=== PATIENT | male | born 1935 | race Caucasian/White ===

== ENCOUNTER 2019-01-28 19:38 | Emergency (ER) | payer MEDICARE, OTHER ==
[~2019-01-28] VITALS: Ht 182.9 cm; Wt 117.9 kg
[~2019-01-28 19:38] MED LIST: ENALAPRIL; HCTZ; HYDROCHLOROTHIA25 MG PO; LOSARTAN POTAS100 MG PO; METOPROLOL SUCC25 MG PO; PANTOPRAZOLE SO40 MG PO
--- OUTSIDE RECORDS SUMMARY | 2019-01-28 19:41 | XMS REPORT | Summary of Care ---
Author Author WILLY Walker, HERNANDO Price Unknown Address Unknown Phone Unavailable Care Team Providers Care Commercial Driver Name Role Phone Martha Nicole R.N. Unavailable Unavailable NICOLE Walker, SATHYA Unavailable Unavailable FRED Walker, ALISHA Unavailable Unavailable WILLY Walker, HERNANDO Unavailable Unavailable KELLEY [place], DOTTIE Y Unavailable Unavailable KELLEY Walker, DOTTIE Unavailable Unavailable FRED [place], ALISHA H Unavailable Unavailable WILLY OVERTON, HERNANDO Unavailable Unavailable GIRISH CHRIS [place], ENRIKEJASMEET Unavailable Unavailable NICOLE [place], SATHYA Ferrell Unavailable Unavailable BECKY [place], DWAYNE COELHO Unavailable Unavailable Unavailable Unavailable Functional Status Name Dates Details Functional status health issues are not documented Status: Name Dates Details Cognitive status health issues are not documented Status: Problems Name Dates Details 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, 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 Neuralgia (729.2, M79.2) Status: Active Polyuria (788.42, R35.8) Status: Active Gout (274.9, M10.9) Status: Active Fracture of left inferior pubic ramus with delayed healing (V54.19, S32.592G) Status: Active Left sciatic nerve pain (724.3, M54.32) Status: Active 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, 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 Advance care planning (V65.49, Z71.89) Status: Active Pre-op exam (V72.84, Z01.818) Status: Active Hyperlipidemia (272.4, E78.5) Status: Active Aortic dilatation (447.70, I77.819) Status: Active Skin lesions (709.9, L98.9) Status: Active Foot pain (729.5, M79.673) Status: Active Limb pain (729.5, M79.609) Status: Active Fatigue (780.79, R53.83) Status: Active Weakness generalized (780.79, R53.1) Status: Active Bradycardia, unspecified (427.89, R00.1) Status: Active Abnormal CBC (790.6, R79.89) Status: Active Insomnia (780.52, G47.00) Status: Active PVC (premature ventricular contraction) (427.69, I49.3) Status: Active Hip pain, acute, right (719.45, M25.551) Status: Active Anxiety (300.00, F41.9) Status: Active Cloudy urine (791.9, R82.90) Status: Active Hernia, inguinal (550.90, K40.90) Status: Active Scrotum swelling (608.86, N50.89) Status: Active Neuropathy, peripheral (356.9, G62.9) Status: Active Severe right groin pain (789.09, R10.30) Status: Active Rash (782.1, R21) Status: Active 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, 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, 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 (701.9, L91.8) Status: Active 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, 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 * Start : 13-Aug-2018 Active Aspirin Low Dose 81 MG TABS 1 TABLET BY MOUTH DAILY * Refills: 0 Active Metoprolol Tartrate 25 MG Oral Tablet take 1/2 tablet twice daily * Quantity: 30 Refills: 2 HERNANDO AGUILERA M.D. * Start : 13-Oct-2018 Active Flecainide Acetate 50 MG Oral Tablet TAKE 1 TABLET BY MOUTH TWICE DAILY * Quantity: 180 Refills: 2 HERNANDO AGUILERA M.D. * Start : 10-Jun-2017 Active Diclofenac Sodium 1 % Transdermal Gel APPLY TO LOWER EXTREMITIES, 4 GM OF GEL TO AFFECTED AREA 4 TIMES DAILY. DO NOT APPLY MORE THAN 16 GM DAILY TO ANY ONE AFFECTED JOINT. * Quantity: 5 Refills: 3 ALISHA IBARRA M.D. * Start : 01-Oct-2017 Active 100 GM Tube HYDROcodone-Acetaminophen 5-325 MG Oral Tablet TAKE 1 TABLET BY MOUTH DAILY NEEDED * Quantity: 180 Refills: 0 Active Gabapentin 100 MG Oral Capsule TAKE 1 CAPSULE AT BEDTIME- PRESCRIBED BY [facility] * Refills: 0 Active Mucinex DM 30-600 MG Oral Tablet Extended Release 12 Hour TAKE 1 TO 2 TABLETS EVERY 12 HOURS NEEDED. * Quantity: 60 Refills: 0 SATHYA RIVERA M.D. * Start : 31-Dec-2018 End : 15-Jan-2019 Active Ventolin HFA 108 (90 Base) MCG/ACT Inhalation Aerosol Solution INHALE 2 PUFFS 3 TIMES DAILY NEEDED. * Quantity: 1 Refills: 2 SATHYA RIVERA M.D. * Start : 02-Jan-2019 Active 8 GM Inhaler Levalbuterol HCl - 1.25 MG/3ML Inhalation Nebulization Solution 1 treatment in office now * Refills: 0 SATHYA RIVERA M.D. * Start : 02-Jan-2019 Admin Requested Amoxicillin-Pot Clavulanate 875-125 MG Oral Tablet TAKE 1 TABLET EVERY 12 HOURS WITH MEALS UNTIL GONE. * Quantity: 20 Refills: 0 SATHYA RIVERA M.D. * Start : 02-Jan-2019 Active Fenofibrate 145 MG Oral Tablet TAKE 1 TABLET DAILY. * Quantity: 30 Refills: 5 HERNANDO AGUILERA M.D. 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 Date: 07-Jan-2019 [QH] LIPID PANEL WITH REFLEX TO DIRECT LDL Date: 07-Jan-2019 [N] 2D Echo complete, with Doppler 80375 Date: 07-Jan-2019 History of Knee Surgery Completed History of Cataract Surgery Completed History of Inguinal hernia repair Completed Immunization Name Dates Details Immunizations not documented Family History Name Dates Details Family history of Aneurysm Of Abdominal Aorta Comments: Family History Status: Active Family history of Hairy-cell Leukemia - Splenic Comments: Family History Status: Active Social History Name Dates Details - Status: Name Dates Details Former smoker Vital Signs Date Test Result Details [id number] BP Systolic 127 mm[Hg] Status: Comments: Location: RUE; Position: Sitting BP Diastolic 83 mm[Hg] Status: Comments: Location: RUE; Position: Sitting Height 72 in Status: Weight 210 lb Status: Body Mass Index Calculated 28.48 kg/m2 Status: Body Surface Area Calculated 2.18 m2 Status: Heart Rate 65 /min Status: :23 O2 SAT 97 % Status: :15 BP Systolic 138 mm[Hg] Status: Comments: Location: LUE; Position: Sitting BP Diastolic 79 mm[Hg] Status: Comments: Location: LUE; Position: Sitting Height 72 in Status: Weight 215 lb Status: Body Mass Index Calculated 29.16 kg/m2 Status: Body Surface Area Calculated 2.2 m2 Status: Heart Rate 62 /min Status: Comments: Location: L Radial; Temperature 97.8 f Status: Comments: Method: Oral :54 Physical Findings 2 Status: Comments: PHQ-9 Adult Depression Screening :51 BP Systolic 116 mm[Hg] Status: Comments: Location: LUE; Position: Sitting BP Diastolic 77 mm[Hg] Status: Comments: Location: [facility] [place]; Position: Sitting Height 72 in Status: Weight 215.9 lb Status: Body Mass Index Calculated 29.28 kg/m2 Status: Body Surface Area Calculated 2.2 m2 Status: Heart Rate 65 /min Status: O2 SAT 97 % Status: Comments: Source: Temperature 98 f Status: Comments: Method: Oral Physical Findings 0 Status: Comments: Alcohol Screen - How many times in the past yr have you had 5 (for M) or 4 (for F) or 4 (for all > 65yrs) or more drinks in a day? Respiration Rate 16 /min Status: Results Date Description Value Details [id number] [O] Flu Test (in Office ) Flu A NEGATIVE (Normal) Flu B NEGATIVE (Normal) Plan of Care Name Dates Details Planned Observations Planned Goals not documented Planned Encounters Appointment; JHONY ECHO On: 05-Jul-2019 13:00 Appointment; JHONY HOLTER On: 05-Jul-2019 14:00 Appointment; HERNANDO AGUILERA M.D. On: 22-Jul-2019 11:00 Interventions Provided Medication Changes* Fenofibrate 145 MG Oral Tablet - Renew Instructions Name Dates Details Instructions not documented Encounters Appointment; ALISHA IBARRA M.D. Encounter Diagnosis: Problem not documented On: 06-Feb-2017 10:30 Appointment; DOTTIE BENSON M.D. Encounter Diagnosis: Problem not documented On: 07-Feb-2017 11:00 Appointment; HERNANDO AGUILERA M.D. Encounter Diagnosis: Problem not documented On: 10-Feb-2017 15:15 Appointment; JHONY NUCLEAR Encounter Diagnosis: Problem not documented On: 17-Feb-2017 11:30 Appointment; JHONY ECHO Encounter Diagnosis: Problem not documented On: 18-Feb-2017 8:00 Appointment; HERNANDO AGUILERA M.D. Encounter Diagnosis: Problem not documented On: 20-Feb-2017 9:30 Appointment; ALISHA IBARRA M.D. Encounter Diagnosis: Problem not documented On: 27-Feb-2017 10:30 Appointment; OLEG MUÑOZ NP Encounter Diagnosis: Problem not documented On: 05-Mar-2017 11:30 Appointment; ALISHA IBARRA M.D. Encounter Diagnosis: Problem not documented On: 09-Apr-2017 9:45 Appointment; ALISHA IBARRA M.D. Encounter Diagnosis: Problem not documented On: 15-Apr-2017 9:00 Appointment; ALISHA IBARRA M.D. Encounter Diagnosis: Problem not documented On: 07-May-2017 11:15 Appointment; ALISHA IBARRA M.D. Encounter Diagnosis: Problem not documented On: 21-May-2017 11:45 Appointment; ALISHA IBARRA M.D. Encounter Diagnosis: Problem not documented On: 23-May-2017 10:00 Appointment; BECCA VÁSQUEZ NP Encounter Diagnosis: Problem not documented On: 23-May-2017 14:15 Appointment; HERNANDO AGUILERA M.D. Encounter Diagnosis: Problem not documented On: 26-May-2017 13:30 Appointment; JESSI BOOKER Encounter Diagnosis: Problem not documented On: 26-May-2017 15:00 Appointment; HERNANDO AGUILERA M.D. Encounter Diagnosis: Problem not documented On: 10-Jun-2017 14:00 Appointment; AMANDA STOUT D.O. Encounter Diagnosis: Problem not documented On: 11-Jun-2017 13:30 Appointment; ALISHA IBARRA M.D. Encounter Diagnosis: Problem not documented On: 04-Jul-2017 10:00 Appointment; HERNANDO AGUILERA M.D. Encounter Diagnosis: Problem not documented On: 10-Jul-2017 11:00 Appointment; AMANDA STOUT D.O. Encounter Diagnosis: Problem not documented On: 24-Jul-2017 12:00 Appointment; ALISHA IBARRA M.D. Encounter Diagnosis: Problem not documented On: 30-Jul-2017 15:15 Appointment; TISH MONROE D.O. Encounter Diagnosis: Problem not documented On: 13-Aug-2017 14:00 Appointment; GRACE VU M.D. Encounter Diagnosis: Problem not documented On: 15-Aug-2017 13:00 Appointment; DOTTIE BENSON M.D. Encounter Diagnosis: Problem not documented On: 28-Aug-2017 14:15 Appointment; ALISHA IBARRA M.D. Encounter Diagnosis: Problem not documented On: 01-Oct-2017 9:30 Appointment; ALISHA IBARRA M.D. Encounter Diagnosis: Problem not documented On: 01-Oct-2017 14:00 Appointment; ALISHA IBARRA M.D. Encounter Diagnosis: Problem not documented On: 13-Nov-2017 10:30 Appointment; ALISHA IBARRA M.D. Encounter Diagnosis: Problem not documented On: 26-Nov-2017 13:00 Appointment; ALISHA IBARRA M.D. Encounter Diagnosis: Problem not documented On: 31-Dec-2017 14:00 Appointment; HERNANDO AGUILERA M.D. Encounter Diagnosis: Problem not documented On: 13-Jan-2018 14:00 Appointment; LIAT ARANDA P.A. Encounter Diagnosis: Problem not documented On: 21-Jan-2018 8:15 Appointment; ALISHA IBARRA M.D. Encounter Diagnosis: Problem not documented On: 11-Feb-2018 11:15 Appointment; ALISHA IBARRA M.D. Encounter Diagnosis: Problem not documented On: 18-Feb-2018 11:15 Appointment; ALISHA IBARRA M.D. Encounter Diagnosis: Problem not documented On: 20-Feb-2018 13:30 Appointment; ALISHA IBARRA M.D. Encounter Diagnosis: Problem not documented On: 13-May-2018 11:15 Appointment; ALISHA IBARRA M.D. Encounter Diagnosis: Problem not documented On: 17-Jun-2018 11:00 Appointment; ALISHA IBARRA M.D. Encounter Diagnosis: Problem not documented On: 01-Jul-2018 13:15 Appointment; HERNANDO AGUILERA M.D. Encounter Diagnosis: Problem not documented On: 09-Jul-2018 11:20 Appointment; HERNANDO AGUILERA M.D. Encounter Diagnosis: Problem not documented On: 16-Jul-2018 11:20 Appointment; SATHYA RIVERA M.D. Encounter Diagnosis: Problem not documented On: 31-Dec-2018 15:15 Appointment; TITO MACKAY NP Encounter Diagnosis: Problem not documented On: 02-Jan-2019 11:00 Appointment; HERNANDO AGUILERA M.D. Encounter Diagnosis: Problem not documented On: 07-Jan-2019 11:20
[2019-01-28] MEDS ORDERED: ALBUTEROL/IPRATROPIUM 3 ML NEB NEB ONE (20:15)
[2019-01-28] MEDS ORDERED: IBUPROFEN 600 MG TAB PO ONE (20:33)
--- NOTE | 2019-01-28 20:37 | Diagnostic Imaging Report ---
EXAMINATION: CXR 2 VIEW - HOPD INDICATION: Chest congestion. Cough. Wheezing x3-4 weeks. COMPARISON: None FINDINGS: TUBES and LINES: None. LUNGS: Lungs are well inflated. There are bibasilar atelectasis. There is no evidence of pneumonia or pulmonary edema. PLEURA: No pleural effusion or pneumothorax. HEART AND MEDIASTINUM: The cardiomediastinal silhouette is unremarkable. Aorta is mildly tortuous. BONES AND SOFT TISSUES: There are degenerative changes in the thoracic spine. Soft tissues are unremarkable. UPPER ABDOMEN: No free air under the diaphragm. IMPRESSION: No acute thoracic abnormality. Signed by: Dr. Teofilo Ramos M.D. on 01/28/2019 8:34 PM
[2019-01-28 20:50] VITALS: BP 158/95
== END 2019-01-28 21:11 | disposition home or self-care (01) ==
LOC: FSED 19:38
DX: R05 Cough (principal); J20.9 Acute bronchitis, unspecified
CPT/HCPCS: 71046; 99283

== ENCOUNTER 2024-12-29 01:38 | Emergency (ER) | payer MEDICARE ==
[~2024-12-29] VITALS: Ht 182.9 cm; Wt 88.0 kg
[2024-12-29 01:43] VITALS: TEMP 98.4
[2024-12-29] MEDS ORDERED: BELLADONNA ALK/PHENOBARBITAL 5 ML UDC ONE (02:15)
[2024-12-29] MEDS: LIDOCAINE VISC 2% SOLN 15 ML UDC PO ONE (02:16)
[2024-12-29] MEDS: FAMOTIDINE 20 MG/2 ML VIAL IV STA (02:30)
[2024-12-29] MEDS: MAGNESIUM/ALUMINUM/SIMETHICONE 30 ML UDC PO ONE (02:30)
[2024-12-29] MEDS: BELLADONNA ALK/PHENOBARBITAL 5 ML UDC PO ONE ×2 (02:31)
[2024-12-29] MEDS ORDERED: IOPAMIDOL 370 MG/ML 100 ML INFUS..BTL INJ ONE (02:54)
[2024-12-29] MEDS ORDERED: KETOROLAC TROMETHAMINE 30 MG/ML VIAL ONE (04:08)
[2024-12-29] MEDS: KETOROLAC TROMETHAMINE 30 MG/ML VIAL IV STA (04:15)
[2024-12-29 04:45] VITALS: PULSE 65; RESP 18
[2024-12-29] MEDS: Morphine 2mg Syringe 2 MG/ML SYR IV ONE (04:53)
[2024-12-29 06:38] VITALS: BP 172/78; PULSE 65; RESP 18; TEMP 98.4; O2SAT 99
[2024-12-29] MEDS: Morphine 2mg Syringe 2 MG/ML SYR IV PRN (06:54)
[2024-12-29] MEDS: SODIUM CHLORIDE 0.9% 1000ML 1,000 ML IV SCH (06:54)
== END 2024-12-29 06:50 | disposition short-term general hospital (02) ==
LOC: FSED 02:02
DX: R10.11 Right upper quadrant pain (principal); K81.9 Cholecystitis, unspecified; R14.2 Eructation; I44.0 Atrioventricular block, first degree; K57.90 Diverticulosis of intestine, part unspecified, without perforation or abscess without bleeding; K44.9 Diaphragmatic hernia without obstruction or gangrene; I10 Essential (primary) hypertension; Z96.641 Presence of right artificial hip joint; Z96.651 Presence of right artificial knee joint
CPT/HCPCS: 74177; 76700; 80053; 80076; 81003; 84484; 85025; 93005; 99284; J1885; J2270; J2543; J7030; Q9967

== ENCOUNTER 2025-06-30 14:10 | Emergency (ER) | payer MEDICARE ==
[~2025-06-30] VITALS: Ht 185.4 cm; Wt 86.8 kg
[2025-06-30] MEDS ORDERED: TRICOR145 MG PO (14:51)
[2025-06-30] MEDS ORDERED: LISINOPRIL10 MG PO (14:51)
[2025-06-30] MEDS ORDERED: ASPIRIN325 MG PO (14:51)
[2025-06-30] MEDS ORDERED: TRAZODONE HCL50 MG PO (14:51)
[2025-06-30] MEDS ORDERED: MELOXICAM7.5 MG PO (14:51)
[2025-06-30] MEDS ORDERED: NEURONTIN300 MG PO (14:51)
[2025-06-30 15:30] VITALS: PULSE 72; RESP 18; TEMP 98.7; O2SAT 97
== END 2025-06-30 15:30 | disposition home or self-care (01) ==
LOC: FSED 14:17
DX: R05.9 Cough, unspecified (principal); J06.9 Acute upper respiratory infection, unspecified; Z11.52 Encounter for screening for COVID-19
CPT/HCPCS: 0223U; 83518; 87400; 99283